=== PATIENT | female | born 1965 | race Caucasian/White ===

== ENCOUNTER 2018-12-07 17:21 | Inpatient (IN) | payer OTHER ==
[~2018-12-07] VITALS: Ht 167.6 cm; Wt 78.0 kg
--- NOTE | ~2018-12-07 | EEG ---
[address] [address] EEG STUDY REPORT Name: ALEENASLAVA M Room: [address] IN .R.#: [id number] Admission: 12/07/18 Attend Phys: Beatriz Stroud MD Discharge: Date of : 67 Report #: [id number] THIS REPORT FOR: //name// CC: [facility] physician/PCP Beatriz Stroud DATE OF SERVICE: 12/08/2018 INTERPRETATION: This patient was admitted with seizure. EEG was done by placing the electrode by standard 10-20 system of electrode placement. Both referential and sequential montages were used for recording. Background activity in this patient's EEG is about 11 Hz and 40 microvolts. The patient became drowsy and that is associated with bilateral slowing and vertex sharp waves. Photic stimulation was unremarkable. Throughout the record, no active epileptiform activity was noticed. IMPRESSION: This patient's EEG is unremarkable. Thank you very much for this referral. By: 1735 1923Plaisha Low MD /nt
--- NOTE | ~2018-12-07 | CON ---
[address] [address] CONSULTATION Name: ALEENASLAVA M Room: [address] IN .R.#: [id number] Admission: 12/07/18 Attend Phys: Beatriz Stroud MD Discharge: Date of : 67 Report #: [id number] THIS REPORT FOR: //name// CC: [facility] physician/PCP Beatriz Stroud DATE OF SERVICE: 12/08/2018 HISTORY OF PRESENT ILLNESS: This is a 53-year-old female patient who was evaluated by me for seizure. The history I get from her was different than I got when talking to Emergency Room physician. This patient gives a history that she had 3 seizures in her life. The first seizure was when she was undergoing alcohol detox and she also has stopped taking Xanax. Seizure occurred 3-5 days after that. Then, she had another seizure in similar circumstances. The patient had another seizure. The history I get in this patient is that she stopped drinking alcohol and stopped taking Xanax about 3 days ago. To ER doctor, it looks like she has provided history that it happened about 2 weeks ago. The history is confusing from her, but the best I understand, she was drinking very heavily until about 2 weeks ago, then she cut back, but never stopped until about 3-5 days ago. She does not remember anything about the seizure. I talked to the patient's mother. She witnessed the seizure and it was a classical grand mal seizure. She takes Xanax for anxiety. REVIEW OF SYSTEMS: Indicate that this is her third seizure. She feels back to her baseline. It does not look like this patient has any significant withdrawal. She is able to ambulate without significant difficulty. A 14-point review of system was carried out and she does not have any new eye, ENT, cardiac, respiratory, GI, , musculoskeletal, constitutional, dermatological, hematological, psychiatric, throat, allergic symptoms associated with present symptomatology. PAST MEDICAL HISTORY: Positive for seizure, which also looked alcohol or Xanax withdrawal seizure. FAMILY HISTORY: Negative for any early age stroke. SOCIAL HISTORY: She smokes, she drinks alcohol, and she takes medication for anxiety regularly. PHYSICAL EXAMINATION: Examination indicates she is alert, responsive, able to follow simple and complex command. Cranial nerve examination 2-12 looks unremarkable. Strength, sensation, reflexes and tone is symmetrical. There is no cerebellar sign. There is no meningeal sign. I could not look at the patient's fundus. Her cardiac examination is unremarkable. No respiratory difficulty was noticed. Her hearing and vision is adequate. No thyroid mass was noticed. Blood pressure is 162/85, pulse is 61, and temperature is 98.1. [place] [address] CONSULTATION Name: ALEENASLAVA M Room: [address] IN M.R.#: [id number] Admission: 12/07/18 Attend Phys: Beatriz Stroud MD Discharge: Date of : 67 Report #: [id number] LABORATORY DATA: White count is 9.1. Potassium is low at 3.1. She did have a CT and subsequently an MRI. MRI was normal. 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 I had a long talk with this patient and I told her that what she is doing can be catastrophic and fatal to her. She needs to stop drinking alcohol altogether. She needs to coordinate her benzodiazepine with her family doctor and either she should not take it or take it properly. They are habit forming medication and is very desirable that she does not take that. RECOMMENDATIONS: I did order some TSH, vitamin B12 level and magnesium. I did order an EEG. To look for any alcoholic cardiomyopathy, I will order an echocardiogram. If they are all okay, then from neurological perspective, the patient can be dismissed and should follow up with the primary. She was told that she needs to take seizure precautions. They were discussed with her. She cannot drive at least for [address] only when released by the primary. I discussed all of it with the patient in detail and she understands that and hopefully she will follow this advice. By: 1228 0008Richard Low MD /norma
[2018-12-07 17:22] VITALS: BP 157/89
[2018-12-07] MEDS ORDERED: BP MED (17:34)
[2018-12-07] MEDS ORDERED: PRILOSEC 20 MG20 MG PO (17:35)
[2018-12-07 17:36] LABS: HEMATOCRIT 37.7 % (37.0-47.0); HEMOGLOBIN 12.7 gm/dL (12.0-15.0); MCH 33.2 pg (26.0-34.0); MCHC 33.7 g/dL (28.0-37.0); MCV 98.6 fL (80.0-100.0); MPV 9.3 fl. (7.2-11.1); NUCLEATED RBCS 0 /100WBC; PLATELET COUNT* 175 thou/uL (150-400); RBC 3.83 mil/uL (4.20-5.00); RDW-CV 14.7 % (10.5-14.5); WBC 9.1 thou/uL (4.0-11.0)
[2018-12-07 17:47] LABS: ANION GAP 15 mmol/L (7-16); BUN 7 mg/dL (7-18); CALCIUM 8.5 mg/dL (8.5-10.1); CHLORIDE 105 mmol/L (98-107); CO2 22 mmol/L (21-32); CREATININE 0.9 mg/dL (0.6-1.3); GLUCOSE 133 mg/dL (70-99); POTASSIUM 3.3 mmol/L (3.5-5.1); SODIUM 142 mmol/L (136-145)
[2018-12-07 17:56] LABS: ALBUMIN 3.2 g/dL (3.4-5.0); ALKALINE PHOSPHATASE 54 U/L (46-116); SGOT 64 U/L (15-37); SGPT 64 U/L (30-65); TOTAL BILIRUBIN 0.2 mg/dL (<0.1-1.0); TOTAL PROTEIN 6.6 g/dL (6.4-8.2); TROPONIN-I LEVEL <0.06 ng/mL (<0.06)
[2018-12-07 18:00] LABS: ABSOLUTE EOSINOPHILS 0.4 thou/uL (0.0-0.7); ABSOLUTE LYMPHOCYTES 2.3 thou/uL (0.8-5.3); ABSOLUTE MONOCYTES 0.4 thou/uL (0.0-1.2); ABSOLUTE NEUTROPHILS 6.1 thou/uL (1.6-8.1)
[2018-12-07 18:01] LABS: LARGE PLATELETS OCCASIONAL; PLATELET ESTIMATE ADEQUATE
[2018-12-07 19:57] VITALS: BP 156/80
[2018-12-07 20:00] VITALS: BP 170/88
--- NOTE | 2018-12-07 20:00 | NUR ---
PT ADMITTED TO FLOOR PER CART ACCOMPANIED BY ER STAFF WITH BELONGINGS. ORIENTED TO ROOM AND CALL LITE, CO HEADACHE AND GENERALIZED BODY ACHES, SORE MUSCLES. ROOM AIR SAT 98%. LAC SL. SEIZURE PRECAUTIONS IN PLACE. UP WITH SBA TO BATHROOM VOIDING WITHOUT DIFFICULTY. HISTORY OBTAINED AND ASSESSMENT PERFORMED, SEE ADMIT NOTES. DENIES NAUSEA, TOLERATING LIQUIDS WITHOUT N/V. WILL CONTINUE TO MONITOR AND PROVIDE CARES NEEDED.
[2018-12-07] MEDS ORDERED: XANAX1 MG PO (22:13)
[2018-12-08 00:46] VITALS: BP 144/72
--- NOTE | 2018-12-08 05:55 | NUR ---
NEW ADMISSION AT BEGINNING OF SHIFT. AO X4, CALM AND COOPERATIVE. UP SBA TO BR TO VOID WITHOUT DIFFICULTY. RECEIVED TYLENOL FOR HEADACHE AT HS WITH GOOD RESULT, HAS SLEPT FAIRLY WELL OVERNIGHT WITH NO COMPLAINTS VOICED. LAC SL. NO SEIZURE ACTIVITY OBSERVED SINCE ADMIT, SEIZURE PRECAUTIONS IN PLACE. NO TREMORS OR HALLUCINATIONS. PO POTASSIUM GIVEN AT HS PER PROTOCOL. NEUROLOGY TO SEE PT TODAY. ABLE TO USE CALL LITE AND MAKE NEEDS KNOWN, CALL LITE IN EASY REACH. MRI HEAD TO BE DONE TODAY.
[2018-12-08 08:15] VITALS: BP 162/85
--- NOTE | 2018-12-08 10:32 | EKG ---
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 LAMB : 1965 Requested By: Jarod Schmid Order Number: [id number] MD: Eduardo Robbins Measurements Intervals [place] Rate: 70 P: 37 OR: 152 QRS: -17 QRSD: 107 T: 42 QT: 416 QTc: 449 Interpretive Statements Sinus rhythm Incomplete left bundle branch block Inferior infarct, old No previous ECG available for comparison Electronically Signed On 12-08-2018 10:32:37 CDT by Eduardo Robbins [email or web address] <ELECTRONICALLY SIGNED> By: Eduardo Robbins MD, [facility] 12/08/18 1032 1735 1735 Eduardo Robbins MD, [facility] /EPI
[2018-12-08 12:00] VITALS: BP 177/80
--- NOTE | 2018-12-08 12:54 | NUR ---
SPOKE TO THE PATIENT TO DISCUSS HER HOME SITUATION, DISCHARGE PLANNING AND TO INFORM OF THE ROLE OF CM. PATIENT ALERT,AND ORIENTED. PATIENT ACTIVE AND INDEPENDENT. PATIENT OWNS 0 DME. PATIENT HAS NO HX OF HH OR SNF. [employer] OFFERED THE PATIENT ALCOHOL/SUBSTANCE ABUSE INFO PACKET, AND INFO FOR PATHWAYS. PATIENT ACCEPTED INFO, BUT STATES 'I KNOW WHAT I NEED TO DO'. CM WILL REMAIN AVAILABLE TO ASSIST AND FOLLOW NEEDED.
[2018-12-08] MEDS ORDERED: TRANDATE 200 M200 M1 PO (13:44)
--- NOTE | 2018-12-08 14:04 | NUR ---
PATIENT CALLED NURSE TO STATE SHE HAS A GENERALIZED RASH DEVELOPING ON BODY. DENIES ANY ITCHING, TROUBLE BREATHING. VSS. PLACED ON REPRESENTATIVE PHLEBOTOMY SERVICES, TRACING NSR. PAGED DR BRENNAN TO INFORM OF RASH, NEW ORDERS NOTED. SPOKE WITH PATIENT'S PHARMACY TO VERIFY HOME BLOOD PRESSURE MEDICATION. PATIENT'S HOME MEDICATION LIST UPDATED TO REFLECT CORRECT BLOOD PRESSURE MEDICINE AND DR ALMAGUER NOTIFIED. ORDERS RECEIVED TO DC LISINOPRIL AND START HOME DOSE OF BP MED THIS EVENING. PATIENT INFORMED OF THE ABOVE. WILL CONTINUE WITH PLAN OF CARE.
[2018-12-08 15:28] LABS: AMP/METHAMP Negative (Negative); BARBITURATES Negative (Negative); BENZODIAZEPINES Negative (Negative); COCAINE Negative (Negative); METHADONE Negative (Negative); OPIATES Negative (Negative); PCP Negative (Negative); THC Negative (Negative)
[2018-12-08 16:00] VITALS: BP 151/82
--- NOTE | 2018-12-08 17:15 | NUR ---
PATIENT HAS BEEN A/O X 4 THIS SHIFT. SALINE LOCK PATENT. PLACED ON LINE UP EXAMINER, TRACING NSR. PATIENT SEEN BY NEURO THIS SHIFT, HAD MRI OF HEAD AND EEG COMPLETED. PATIENT NOTED TO HAVE GENERALIZED RASH TO ARMS, LEGS, AND NECK, TREATED WITH SOLUMEDROL AND BENADRYL. PATIENT HAS HAD NO SEIZURE ACTIVITY. UP AMBULATING IN HALLS INDEPENDENTLY. PATIENT TOLERATING MEALS. HOPEFUL TO BE DISCHARGED SOON. FALL PRECAUTIONS IN PLACE. HOURLY ROUNDING COMPLETED. CALL LIGHT WITHIN REACH. WILL CONTINUE WITH PLAN OF CARE.
[2018-12-08 20:45] VITALS: BP 134/67
[2018-12-09] VITALS: BP 159/74
[2018-12-09 04:01] VITALS: BP 163/64
--- NOTE | 2018-12-09 04:44 | NUR ---
ASSESSMENT: PT REMAIN ALERT AND ORIENT TIMES THREE., UP AD GT. DENIES PAIN, NAUSEA AND SOB. DENIES SEIZURE ACTIVITY AND NO SEIZURE ACTIVITY NOTED PER HOURLY ROUNDING NOR PER THE MONITOR. SR PER MONITOR, AFEBRILE. PT SLEPT MOST OF THE SHIFT. VSS, AFEBRILE. POSSIBLE DC TO HOME TODAY. SLOW PROGRESS TOWARDS DC GOALS. WILL CONTINUE TO MONITOR.
[2018-12-09 07:08] VITALS: BP 166/82
[2018-12-09 13:44] VITALS: BP 154/90
--- NOTE | 2018-12-09 14:52 | NUR ---
ASSESSMENT COMPLETE. PT ALERT AND ORIENTED X4. DENIES PAIN. PREDNISONE AND BENADRYL GIVEN FOR RASH. PT IS ON ROOM AIR, VSS. PT TOLERATING MEALS, DENIES N/V. PT HAS SEIZURE PRECAUTIONS. UP AD GT WITH STEADY GAIT. PT HAS NO CONCERNS. SEE ASSESSMENT AND VITALS FOR OTHER DETAILS. CALL LIGHT WITHIN REACH, WILL CONTINUE PLAN OF CARE
[2018-12-09 17:26] VITALS: BP 149/67
[2018-12-09 20:00] VITALS: BP 137/74
[2018-12-10] VITALS: BP 142/59
--- NOTE | 2018-12-10 03:56 | NUR ---
ASSESSMENT: PT REMAIN ALERT AND ORIENT TIMES FOUR, UP TO BR WITH STEADY GAIT. SLEPT MOST OF THE SHIFT. NO SEIZURE ACTIVITY WITNESSED NOR REPORTED. VSS, AFEBRILE. SR PER MONITOR. ANTABUSE HAS BEEN PRESCRIBED FOR PT'S ETOH RECOVERY. GOOD PROGRESS TOWARDS DC GOALS., WILL CONTINUE TO MONITOR.
[2018-12-10 04:00] VITALS: BP 143/83
[2018-12-10] MEDS ORDERED: PREDNISONE 10 M10 MG PO (09:54)
[2018-12-10] MEDS ORDERED: CENTRUM SILVER1 EAC4 PO (09:56)
[2018-12-10] MEDS ORDERED: FOLIC ACID1 MG PO (09:56)
[2018-12-10 09:57] VITALS: BP 143/83
--- NOTE | 2018-12-10 10:19 | NUR ---
ASSESSMENT COMPLETE. PT ALERT AND ORIENTED X4. PT GIVEN DC INSTRUCTIONS AND PRESCRIPTIONS. PT VERBALIZES UNDERSTANDING. ALL BELONGINGS SENT WITH PATIENT. SEE ASSESSMENT FOR OTHER DETAILS.
[2018-12-10 10:43] VITALS: BP 143/83
== END 2018-12-10 10:30 | disposition home or self-care (01) | DRG 101 ==
LOC: M.ERS 17:21 → M.3W 18:59 → M.TBA-ER 18:59 → M.3W 20:35
PROVIDERS: Emergency Medicine; Internal Medicine; ADMIT Internal Medicine
DX: R56.9 Unspecified convulsions (principal); I10 Essential (primary) hypertension; K21.9 Gastro-esophageal reflux disease without esophagitis; F10.20 Alcohol dependence, uncomplicated; F41.9 Anxiety disorder, unspecified; T78.40XA Allergy, unspecified, initial encounter; X58.XXXA Exposure to other specified factors, initial encounter; Z87.891 Personal history of nicotine dependence; Z79.899 Other long term (current) drug therapy; Z88.0 Allergy status to penicillin